=== PATIENT | female | born 2005 | race African-American/Black ===

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

== ENCOUNTER 2024-02-13 17:03 | Emergency (ER) | payer BC, MEDICAID ==
[~2024-02-13] VITALS: Ht 177.8 cm; Wt 84.0 kg
[2024-02-13 17:04] VITALS: O2SAT 98
[2024-02-13 17:20] VITALS: TEMP 37.22520
[2024-02-13] MEDS: LEVETIRACETAM 500MG PREMIX 100 ML IV ONE (17:32)
[2024-02-13 17:48] LABS: CHLORIDE 105 mEq/L (98-107); POTASSIUM 3.7 mEq/L (3.5-5.1); SODIUM 137 mEq/L (136-145)
[2024-02-13 17:49] LABS: CALCIUM 9.2 mg/dL (8.7-10.4); CARBON DIOXIDE 27 mEq/L (21-32)
[2024-02-13 17:54] LABS: CREATININE 0.8 mg/dL (0.6-1.0); GLUCOSE 82 mg/dL (70-105); UREA NITROGEN BLOOD 7 mg/dL (9-23)
[2024-02-13 18:00] LABS: HCG SCREEN NEGATIVE
[2024-02-13 18:06] LABS: ETHANOL BLOOD < 10 mg/dL (<10)
[2024-02-13] MEDS: ACETAMINOPHEN 325MG TABLET PO ONE (18:29)
[2024-02-13 19:04] LABS: BASOPHILS % 0.2 % (0.0-2.0); EOSINOPHILS % 0.2 % (0.0-5.0); HEMATOCRIT. 42.8 % (36.0-48.0); HEMOGLOBIN. 14.4 g/dL (12.0-16.0); LYMPHOCYTES % 10.2 % (20.0-50.0); MEAN CORPUSCULAR HEMOGLOBIN 31.6 pg (28.0-32.0); MEAN CORPUSCULAR HGB CONC 33.7 g/dL (31.0-37.0); MEAN CORPUSCULAR VOLUME 93.7 fL (81.0-99.0); MEAN PLATELET VOLUME 8.4 fl (7.4-10.4); MONOCYTES % 7.3 % (2.0-8.0); NEUTROPHILS % 82.1 % (40.0-76.0); PLATELET 224 x1000/uL (130-400); RED BLOOD CELL COUNT 4.56 mill/uL (4.2-5.4); RED CELL DISTRIBUTION WIDTH 17.1 % (11.6-14.6); WHITE BLOOD COUNT 7.1 x1000/uL (4.5-11.0)
[2024-02-13] MEDS ORDERED: KEPP500 MT (19:44)
[2024-02-13 20:00] VITALS: BP 114/60; PULSE 86; RESP 16; O2SAT 98
== END 2024-02-13 20:00 | disposition home or self-care (01) ==
LOC: ER 17:03
DX: G40.909 Epilepsy, unspecified, not intractable, without status epilepticus (principal); F12.10 Cannabis abuse, uncomplicated
CPT/HCPCS: 80048; 80320; 84703; 85025; 36415; 96365; 99284; J1953; G0480